=== PATIENT | male | born 1950 | race Caucasian/White ===

== ENCOUNTER 2017-02-12 01:46 | Emergency (ER) | payer MEDICARE, OTHER ==
--- NOTE | 2017-02-12 04:02 | EDM.PDOC ---
ED HPI Skin/Rash - General Chief Complaint: Skin Complaint Stated Complaint: POSS RASH ON ANKLES Time Seen by Provider: 02/12/17 03:39 Source: Reports: Patient, RN notes reviewed History Limitations: Reports: No limitations - History of Present Illness INITIAL COMMENTS - FREE TEXT/NARRATIVE: The patient states that he has had a rash on his bilateral ankles since this past summer, that it is sometimes pruritic, sometimes not. Tonight it is very pruritic, and he also has a pruritic area on the medial aspect of his right upper arm, without rash. He states that the itching is preventing him from sleeping. The patient believes that the pruritus is due to an adverse reaction to the blood pressure medicines that he has been prescribed. [facility] - Related Data Allergies Allergy/AdvReac Type Severity Reaction Status Date / Time bee venom protein (honey bee) Allergy Swelling Verified 02/12/17 02:00 Home Meds: Ambulatory Orders Medication Instructions Recorded Confirmed Aspirin [Low Dose Aspirin EC] 81 mg PO DAILY 03/08/14 02/12/17 Levothyroxine Sodium [Synthroid] 150 mcg PO DAILY 03/08/14 02/12/17 Cholecalciferol (Vitamin D3) 1,000 unit PO DAILY 02/12/17 02/12/17 [Vitamin D3] Docusate Sodium [Stool Softener] 100 mg PO ASDIRECTED 02/12/17 02/12/17 Fish Oil/Borage/Flax/Om3,6,9#1 1,600 mg PO ASDIRECTED 02/12/17 02/12/17 [[place] 3-6-9 Complex Softgel] Glucosamine [Glucosamine Sulfate] 1,000 mg PO DAILY 02/12/17 02/12/17 Losartan [Cozaar] 50 mg PO DAILY 02/12/17 02/12/17 Omeprazole 20 mg PO DAILY 02/12/17 02/12/17 Past Medical History Cardiovascular History: Reports: Hypertension Gastrointestinal History: Reports: GERD Genitourinary History: Reports: Renal calculus Musculoskeletal History: Reports: Arthritis Endocrine/Metabolic History: Reports: Hypothyroidism, Obesity/BMI 30+ - Past Surgical History HEENT Surgical History: Reports: Cataract surgery, Tonsillectomy GI Surgical History: Reports: Appendectomy Musculoskeletal Surgical History: Reports: Knee replacement (right) Social & Family History - Family History Family Medical History: Noncontributory - Tobacco Use Smoking Status *Q: Former Smoker Years of Tobacco use: 20 Packs/Tins Daily: 0.5 Used Tobacco, but Quit: Yes Month Tobacco Last Used: Quit 1984 Second Hand Smoke Exposure: No - Caffeine Use Caffeine Use: Reports: Coffee, Tea - Alcohol Use Alcohol Use History: Yes Alcohol Use Frequency: Socially - Recreational Drug Use Recreational Drug Use: No - Living Situation & Occupation Living situation: Reports: single, alone 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[employer]) ED ROS GENERAL - Review of Systems Review Of Systems: See Below Constitutional: Reports: no symptoms HEENT: Reports: No symptoms Respiratory: Reports: No Symptoms Cardiovascular: Reports: No symptoms Endocrine: Reports: no symptoms GI/Abdominal: Reports: No symptoms : Reports: no symptoms Musculoskeletal: Reports: no symptoms Skin: Reports: no symptoms Neurological: Reports: No Symptoms Psychiatric: Reports: No symptoms Hematologic/Lymphatic: Reports: no symptoms Immunologic: Reports: no symptoms ED EXAM, SKIN/RASH Exam: See Below Exam Limited By: No limitations General Appearance: alert, WD/WN, no apparent distress Extremities: other (There are several patches, measuring perhaps 3-4 cm in length, 2 cm wide, of thickened, hyperpigmented skin at the ankle level. The patient has 3+ pitting pretibial edema bilaterally, extending onto both feet. Neurovascular status of both lower extremities is intact. Mild eczema noted to the medial aspect of the upper right arm.) Course - Vital Signs Last Recorded V/S: Last Vital Signs Temp 36.3 C 02/12/17 01:56 Pulse 77 02/12/17 01:56 Resp 20 02/12/17 01:56 BP 193/103 H 02/12/17 01:56 Pulse Ox 94 L 02/12/17 01:56 - Re-Assessments/Exams Free Text/Narrative Re-Assessment/Exam: 02/12/17 03:57 I suspect that the lesions on the patient's ankles are early chronic venous stasis changes, and that they have nothing whatsoever to do with the blood pressure medicines that he has been taking. Ordinarily, I would recommend a combination of treatments including a diuretic, compression stockings, and elevation of the lower series, however, as the [facility], the patient states that it may be 3 weeks before he can get in to see his PCP. I am reluctant to prescribe a diuretic for 3 weeks, on monitored, as the patient could have significant electrolyte or renal consequences. Instead, the patient and I have agreed that he will contact the office of his PCP later today and see if he can get in to see her. I am going to document in my discharge instructions my thoughts. If the patient's PCP disagrees, I am suggesting referral to a product management intern for definitive diagnosis and treatment. Departure - Departure Time of Disposition: 03:59 Disposition: Home, Self-Care 01 Condition: good Clinical Impression: Chronic venous stasis dermatitis of both lower extremities Instructions: Venous Stasis or Chronic Venous Insufficiency, Rash, [id number] Referrals: Rneo Osullivan MD [Primary Care Provider] - Forms: ED Department Discharge Additional Instructions: You were seen in the emergency room tonight for worsening itchiness of chronic rashes on your ankles. Your rash appears to be dermatitis due to chronic venous stasis, that is, breakdown of your skin due to excessive pressure, due to edema. We DO NOT believe your rash has anything to do with your blood pressure medicines. We [facility]. Discuss the option of treatment with a diuretic, compression stockings, and elevation of your lower extremities. Alternatively, perhaps she will refer you to a product management intern. In the meantime, we recommend keeping your skin hydrated with a fragrance-free lotion. If any other problems, please do not hesitate to return to the ER.
== END 2017-02-12 04:10 | disposition home or self-care (01) ==
LOC: JD.ED 01:46
CPT/HCPCS: 99282; 99283

== ENCOUNTER 2017-02-14 21:51 | Emergency (ER) | payer OTHER, MEDICARE ==
[2017-02-14 22:08] VITALS: BP 185/94
--- NOTE | 2017-02-14 22:58 | EDM.PDOC ---
ED HPI Trauma - General Chief Complaint: Lower Extremity Injury/Pain Stated Complaint: INJURED LEFT ANKLE Time Seen by Provider: 02/14/17 22:02 Source: Reports: Patient History Limitations: Reports: No limitations - History of Present Illness INITIAL COMMENTS - FREE TEXT/NARRATIVE: The patient presents with left lateral ankle pain. This started after he walked out of the [facility] today. He is unsure if he twisted it or stepped wrong. The pain has been progressively getting worse. He has no history of gout. He was seen for a rash in his legs here 2 days ago and then today at the [facility]. They think he has venous stasis ulcers. Occurred When: this morning Occurred Where: other ([facility]) Method of Injury: unknown Severity: severe Pain/Injury Location: Reports: lower extremity, left (lateral ankle) Consciousness: Reports: no loss of consciousness Allergies/ADRs: Allergies bee venom protein (honey bee) Allergy (Verified 02/14/17 22:02) Swelling Home Medications: Ambulatory Orders Aspirin [Low Dose Aspirin EC] 81 mg PO DAILY 03/08/14 [Confirmed 02/12/17] Levothyroxine Sodium [Synthroid] 150 mcg PO DAILY 03/08/14 [Confirmed 02/12/17] Cholecalciferol (Vitamin D3) [Vitamin D3] 1,000 unit PO DAILY 02/12/17 [ Confirmed 02/12/17] Docusate Sodium [Stool Softener] 100 mg PO ASDIRECTED 02/12/17 [Confirmed ] Fish Oil/Borage/Flax/Om3,6,9#1 [[place] 3-6-9 Complex Softgel] 1,600 mg PO ASDIRECTED 02/12/17 [Confirmed 02/12/17] Glucosamine [Glucosamine Sulfate] 1,000 mg PO DAILY 02/12/17 [Confirmed 02/12/17 ] Losartan [Cozaar] 50 mg PO DAILY 02/12/17 [Confirmed 02/12/17] Omeprazole 20 mg PO DAILY 02/12/17 [Confirmed 02/12/17] Past Medical History HEENT History: Reports: Cataract Cardiovascular History: Reports: Hypertension Gastrointestinal History: Reports: GERD Genitourinary History: Reports: Renal calculus Musculoskeletal History: Reports: Arthritis Endocrine/Metabolic History: Reports: Hypothyroidism, Obesity/BMI 30+ - Past Surgical History HEENT Surgical History: Reports: Cataract surgery, Tonsillectomy GI Surgical History: Reports: Appendectomy Musculoskeletal Surgical History: Reports: Knee replacement Social & Family History - Family History Family Medical History: Noncontributory - Tobacco Use Smoking Status *Q: Former Smoker Years of Tobacco use: 20 Packs/Tins Daily: 0.5 Used Tobacco, but Quit: Yes Month Tobacco Last Used: Quit 1984 Second Hand Smoke Exposure: No - Caffeine Use Caffeine Use: Reports: Coffee, Tea - Alcohol Use Days Per Week of Alcohol Use: 0 - Recreational Drug Use Recreational Drug Use: No - Living Situation & Occupation Living situation: Reports: single, alone 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) Review of Systems - Review of Systems Review Of Systems: See Below Constitutional: Reports: no symptoms Eyes: Reports: no symptoms Ears: Reports: no symptoms Nose: Reports: no symptoms Mouth/Throat: Reports: no symptoms Respiratory: Reports: No Symptoms Cardiovascular: Reports: no symptoms GI/Abdominal: Reports: No symptoms Genitourinary: Reports: no symptoms Musculoskeletal: Reports: other (Left lateral ankle pain) Trauma Exam - Physical Exam Exam: See Below Exam Limited By: No limitations General Appearance: Reports: alert, no apparent distress Head: Reports: atraumatic, normocephalic Ears: Reports: normal external exam Nose: Reports: normal inspection Neck: Reports: non-tender Respiratory Exam: Reports: no respiratory distress Extremities: Reports: other (Moderate pain upon palpation to the left lateral ankle. Good sensation and pulses distally.) Course - Vital Signs Last Recorded V/S: Last Vital Signs Temp 99.4 F 02/14/17 22:02 Pulse 115 H 02/14/17 22:02 Resp 18 02/14/17 22:02 BP 185/94 H 02/14/17 22:02 Pulse Ox 97 02/14/17 22:02 - Orders/Labs/Meds Orders: Active Orders 24 hr Category Date Time Status Ankle Min 3V Lt [CR] Stat Exams 02/14/17 22:17 Taken - Re-Assessments/Exams Free Text/Narrative Re-Assessment/Exam: 02/14/17 22:55 His x-ray looks good. I will discharge him home with an shruti bandage and some percocets. Departure - Departure Time of Disposition: 23:00 Disposition: Home, Self-Care 01 Condition: good Clinical Impression: Left ankle sprain Qualifiers: Encounter type: initial encounter Involved ligament of ankle: unspecified ligament Qualified Code(s): S93.402A - Sprain of unspecified ligament of left ankle, initial encounter Referrals: Reno Osullivan MD [Primary Care Provider] - 1 Week (If not better) Forms: ED Department Discharge Additional Instructions: Ice your ankle for 15 minutes every other hour while awake for 2 days. Elevate your leg as much as you can for 2 days. Take the percocet for pain or an antiinflammatory such as motrin or aleve. [facility] you [facility] not get better in 1 week. - My Orders Last 24 Hours: My Active Orders 02/14/17 22:17 Ankle Min 3V Lt [CR] Stat - Assessment/Plan Last 24 Hours: My Active Orders 02/14/17 22:17 Ankle Min 3V Lt [CR] Stat
--- NOTE | 2017-02-15 14:28 | CR ---
Left ankle: Four views of the left ankle were obtained. Comparison: No previous study. Plantar spur is noted. Soft tissue swelling is identified. Ankle mortise is symmetric. No acute fracture or other bony abnormality is seen. Impression: 1. Soft tissue swelling. 2. Plantar spur. 3. No acute bony abnormality is identified. Diagnostic code #2
== END 2017-02-14 23:10 | disposition home or self-care (01) ==
LOC: JD.ED 21:51
DX: S93.402A Sprain of unspecified ligament of left ankle, initial encounter (principal); I10 Essential (primary) hypertension; K21.9 Gastro-esophageal reflux disease without esophagitis; E03.9 Hypothyroidism, unspecified; E66.9 Obesity, unspecified; Z90.49 Acquired absence of other specified parts of digestive tract; Z98.49 Cataract extraction status, unspecified eye; Z98.890 Other specified postprocedural states; Z96.659 Presence of unspecified artificial knee joint; Z87.891 Personal history of nicotine dependence; Z79.899 Other long term (current) drug therapy; Z79.82 Long term (current) use of aspirin; Z91.030 Bee allergy status; X58.XXXA Exposure to other specified factors, initial encounter; Z68.42 Body mass index [BMI] 45.0-49.9, adult
CPT/HCPCS: 73610-26-LT; 73610-LT; 99283

== ENCOUNTER 2020-02-29 16:14 | Emergency (ER) | payer OTHER, MEDICARE ==
[2020-02-29 16:30] VITALS: BP 164/90; PULSE 79
[2020-02-29] MEDS ORDERED: valACYclovir 1,000 MG Tab PO ONE (16:50)
--- NOTE | 2020-02-29 16:55 | EDM.PDOC ---
ED HPI GENERAL MEDICAL PROBLEM - General Chief Complaint: Upper Extremity Injury/Pain Stated Complaint: RT SHOULDER AND ARM PAIN Time Seen by Provider: 02/29/20 16:31 Source of Information: Reports: Patient History Limitations: Reports: No Limitations - History of Present Illness INITIAL COMMENTS - FREE TEXT/NARRATIVE: Patient is a 69-year-old male who presents to the emergency department with intermittent, throbbing pain to his right shoulder and arm. States that he has "a pimple "on the back and feels like there is something stuck in it. He describes the pain as sharp, stabbing, and burning. States he first noticed it approximately 1 week ago. Denies any fever, chills, nausea, or vomiting. Patient has no history of shingles and has not had a shingles vaccination. Right Shoulder Pain Score (Numeric/FACES): 6 - Related Data Allergies Allergy/AdvReac Type Severity Reaction Status Date / Time bee venom protein (honey bee) Allergy Swelling Verified 02/29/20 16:22 Home Meds: Home Meds Aspirin [Low Dose Aspirin EC] 81 mg PO DAILY 03/08/14 [History] Levothyroxine Sodium [Synthroid] 150 mcg PO DAILY 03/08/14 [History] Cholecalciferol (Vitamin D3) [Vitamin D3] 1,000 unit PO DAILY 02/12/17 [History] Docusate Sodium [Stool Softener] 100 mg PO ASDIRECTED 02/12/17 [History] Fish Oil/Borage/Flax/Om3,6,9 1 [[place] 3-6-9 Complex Softgel] 1,600 mg PO ASDIRECTED 02/12/17 [History] Glucosamine [Glucosamine Sulfate] 1,000 mg PO DAILY 02/12/17 [History] Losartan [Cozaar] 50 mg PO DAILY 02/12/17 [History] Omeprazole 20 mg PO DAILY 02/12/17 [History] valACYclovir [Valtrex] 1,000 mg PO TID 7 Days #20 tab 02/29/20 [Rx] Past Medical History HEENT History: Reports: Cataract Cardiovascular History: Reports: Hypertension Gastrointestinal History: Reports: GERD Genitourinary History: Reports: Renal Calculus Musculoskeletal History: Reports: Arthritis Endocrine/Metabolic History: Reports: Hypothyroidism, Obesity/BMI 30+ - Past Surgical History HEENT Surgical History: Reports: Cataract Surgery, Tonsillectomy GI Surgical History: Reports: Appendectomy Musculoskeletal Surgical History: Reports: Knee Replacement Social & Family History - Family History Family Medical History: Noncontributory - Tobacco Use Smoking Status *Q: Former Smoker Used Tobacco, but Quit: Yes Month/Year Tobacco Last Used: 11/1985 - Caffeine Use Caffeine Use: Reports: None - Recreational Drug Use Recreational Drug Use: No - Living Situation & Occupation Living situation: Reports: Single, Alone Occupation: Employed Review of Systems - Review of Systems Review Of Systems: Comprehensive ROS is negative, except as noted in HPI. ED EXAM, GENERAL - Physical Exam Exam: See Below Exam Limited By: No Limitations General Appearance: Alert, WD/WN, No Apparent Distress Respiratory/Chest: No Respiratory Distress, Lungs Clear, Normal Breath Sounds, No Accessory Muscle Use, Chest Non-Tender Cardiovascular: Normal Peripheral Pulses, Regular Rate, Rhythm, No Edema, No Gallop, No JVD, No Murmur, No Rub Neurological: Alert, Oriented, CN II-XII Intact, Normal Cognition, Normal Gait, Normal Reflexes, No Motor/Sensory Deficits Psychiatric: Normal Affect, Normal Mood Skin Exam: Other (Line of open, scabbed, erythematous lesions following the T1 dermatome on the patient's back, as well as chest. There are number of scattered lesions to the ventral surface of the right arm as well.) Course - Vital Signs Last Recorded V/S: Last Vital Signs Temp 99.9 F 02/29/20 16:24 Pulse 79 02/29/20 16:24 Resp 22 H 02/29/20 16:24 BP 164/90 H 02/29/20 16:24 Pulse Ox 93 L 02/29/20 16:24 - Re-Assessments/Exams Free Text/Narrative Re-Assessment/Exam: 02/29/20 16:54 Exam findings are consistent with a diagnosis of shingles. Patient has not had a shingles vaccination, however he does not have a history of shingles either. We will start the patient on valacyclovir 3 times daily for 7 days. Discharge instructions as documented. Departure - Departure Time of Disposition: 16:55 Disposition: Home, Self-Care 01 Condition: Fair Clinical Impression: Herpes zoster Qualifiers: Herpes zoster complications: without complications Qualified Code(s): B02.9 - Zoster without complications - Discharge Information *PRESCRIPTION DRUG MONITORING PROGRAM REVIEWED*: No *COPY OF PRESCRIPTION DRUG MONITORING REPORT IN PATIENT JACKIE: No Prescriptions: valACYclovir [Valtrex] 1,000 mg PO TID 7 Days #20 tab Instructions: Shingles, [id number] Referrals: Reno Osullivan MD [Primary Care Provider] - Additional Instructions: You were seen in the emergency department today for pain to your right shoulder. Your exam was consistent with a diagnosis of shingles. Treatment for this is antiviral medications. You have been started on valacyclovir. Your first dose was given in the emergency department. You will take it 3 times a day for 7 days. Prescription for this has been sent electronically to [facility]. [facility] and discuss receiving a [facility] vaccination. Return to the ER as needed. Sepsis Event Note - Evaluation Sepsis Screening Result: No Definite Risk - Focused Exam Vital Signs: Vital Signs Temp Pulse Resp BP Pulse Ox 02/29/20 16:24 99.9 F 79 22 H 164/90 H 93 L Date Exam was Performed: 02/29/20 Time Exam was Performed: 16:50
== END 2020-02-29 17:08 | disposition home or self-care (01) ==
LOC: JD.ED 16:14
DX: B02.9 Zoster without complications (principal); I10 Essential (primary) hypertension; K21.9 Gastro-esophageal reflux disease without esophagitis; M19.90 Unspecified osteoarthritis, unspecified site; E03.9 Hypothyroidism, unspecified; E66.9 Obesity, unspecified; Z68.42 Body mass index [BMI] 45.0-49.9, adult; Z87.891 Personal history of nicotine dependence; Z91.030 Bee allergy status; Z79.82 Long term (current) use of aspirin; Z79.899 Other long term (current) drug therapy
CPT/HCPCS: 99283; A9270

== ENCOUNTER 2020-05-20 19:42 | Emergency (ER) | payer MEDICARE, OTHER ==
[2020-05-20] MEDS ORDERED: Acetaminophen/HYDROcodone 325-5 MG Tab PO ONE (21:05)
--- NOTE | 2020-05-20 21:13 | EDM.PDOC ---
ED HPI GENERAL MEDICAL PROBLEM - General Chief Complaint: Lower Extremity Injury/Pain Stated Complaint: KNEE PAIN Time Seen by Provider: 05/20/20 20:42 Source of Information: Reports: Patient, Family (Daughter) History Limitations: Reports: No Limitations - History of Present Illness INITIAL COMMENTS - FREE TEXT/NARRATIVE: Mr. Hernandez is a very pleasant 69-year-old gentleman with a past medical history significant for osteoarthritis, who now presents to the ED stating that he has been experiencing relatively mild left knee pain for about 2 weeks, then developed sudden onset significant anteromedial left knee pain around 19:00 this evening, as he was getting out of a recliner. No direct injury to the knee. He mentions that he has had previous steroid injections to that knee, most recently about 4 months ago, per his Orthopedic Surgeon. He is aware that he needs a left knee replacement (he already underwent a right total knee arthroplasty), and states that he has an appointment at the [facility] on July 13 in that regard. Here in the ED, the patient is found to be hemodynamically stable, afebrile, saturating 91% on room air. Other than his left knee pain, the patient denies recent fever, chills, sore throat, ear pain, nasal or sinus congestion, cough, dyspnea, chest pain, palpitations, nausea, vomiting, constipation, diarrhea, abdominal pain, urinary symptoms, recent weight gain or weight loss, recent bloody bowel movements or black bowel movements, headaches, or rashes. The patient's PCP is Dr. Lisa Dodson, at the [facility] clinic. His Orthopedic Surgeon is Dr. Robert Veliz. Right Knee Pain Score (Numeric/FACES): 8 - Related Data Allergies Allergy/AdvReac Type Severity Reaction Status Date / Time bee venom protein (honey bee) Allergy Swelling Verified 05/20/20 21:20 Home Meds: Home Meds Aspirin [Low Dose Aspirin EC] 81 mg PO DAILY 03/08/14 [History] Levothyroxine Sodium [Synthroid] 175 mcg PO DAILY 03/08/14 [History] Cholecalciferol (Vitamin D3) [Vitamin D3] 1,000 unit PO DAILY 02/12/17 [History] Docusate Sodium [Stool Softener] 250 mg PO ASDIRECTED 02/12/17 [History] Glucosamine [Glucosamine Sulfate] 1,500 mg PO DAILY 02/12/17 [History] Omeprazole 20 mg PO DAILY 02/12/17 [History] Acetaminophen/HYDROcodone [Lawrence 325-5 MG] 1 - 2 tab PO Q6H PRN #14 tablet 05/20/20 [Rx] Hydrochlorothiazide/Lisinopril [Lisinopril/HCTZ 20-12.5 MG] 25 mg PO DAILY 05/20/20 [History] Loratadine 10 mg PO ASDIRECTED 05/20/20 [History] Naproxen Sodium [Aleve] 220 mg PO ASDIRECTED 05/20/20 [History] Triamcinolone Acetonide [Triamcinolone Acetonide 0.5%] 1 applic TOP ASDIRECTED 05/20/20 [History] hydrALAZINE [Apresoline] 25 mg PO ASDIRECTED 05/20/20 [History] lisinopriL [Lisinopril] 40 mg PO DAILY 05/20/20 [History] Past Medical History Cardiovascular History: Reports: Hypertension Gastrointestinal History: Reports: GERD Genitourinary History: Reports: Renal Calculus Musculoskeletal History: Reports: Osteoarthritis Endocrine/Metabolic History: Reports: Hypothyroidism, Obesity/BMI 30+ - Past Surgical History HEENT Surgical History: Reports: Cataract Surgery (bilateral), Tonsillectomy GI Surgical History: Reports: Appendectomy Musculoskeletal Surgical History: Reports: Knee Replacement (right) Social & Family History - Family History Family Medical History: Noncontributory - Tobacco Use Smoking Status *Q: Former Smoker Years of Tobacco use: 20 Packs/Tins Daily: 0.5 Month/Year Tobacco Last Used: Quit 1984 - Caffeine Use Caffeine Use: Reports: Coffee, Soda, Tea - Alcohol Use Alcohol Use History: Yes Alcohol Use Frequency: Socially - Recreational Drug Use Recreational Drug Use: No - Living Situation & Occupation Living situation: Reports: Single, Alone Occupation: Retired Review of Systems - Review of Systems Review Of Systems: Comprehensive ROS is negative, except as noted in HPI. ED EXAM, GENERAL - Physical Exam Exam: See Below Exam Limited By: No Limitations General Appearance: Alert, WD/WN, No Apparent Distress Extremities: Other (No visible abnormality to the left knee, such as swelling, erythema, ecchymosis, or abrasion. The patient has tenderness to palpation over the anteromedial knee, but no significant tenderness elsewhere. He complains of pain with PROM. Trace left pretibial edema. Neurovascular status of the left lower extremity is intact.) Course - Vital Signs Last Recorded V/S: Last Vital Signs Temp 36.7 C 05/20/20 19:58 Pulse 78 05/20/20 21:40 Resp 18 05/20/20 21:40 BP 141/77 H 05/20/20 21:40 Pulse Ox 95 05/20/20 21:40 - Orders/Labs/Meds Meds: Medications Discontinued Medications Generic Name Dose Route Start Last Admin Trade Name Pebbles PRN Reason Stop Dose Admin Hydrocodone Bitart/Acetaminophen 2 tab 05/20/20 21:05 05/20/20 21:20 Lawrence 325-5 Mg PO 05/20/20 21:06 2 tab ONETIME ONE Administration - Re-Assessments/Exams Free Text/Narrative Re-Assessment/Exam: 05/20/20 21:05 As above, the patient developed sudden onset anteromedial pain to his left knee when he got up from a recliner around 19:00, although he admits that he has had pain to that knee for the past couple of weeks. His pain may be due to his underlying arthritis, but he also has tenderness to palpation in that area, and he believes that he has an effusion, therefore I ordered x-rays of the joint to rule out acute pathology. In the meantime, the patient will be treated with 2 tablets of Lawrence. 05/20/20 21:25 8-view radiographs of the left knee appear to demonstrate advanced degenerative joint disease, but no acute abnormalities, such as a fracture or dislocation. The degeneration appears to be particularly advanced on the medial aspect of the joint. Formal read per the Radiologist pending. 05/20/20 21:30 X-ray results discussed with the patient and his daughter. As above, the patient's pain appears to be due to a knee strain, superimposed on advanced arthritis. I recommended a knee immobilizer, and the patient tells me that he already has 2 at home. I will prescribe some Lawrence, and have him continue to take [id number]-[id number] Aleve. He can then follow-up with Dr. Veliz. Departure - Departure Time of Disposition: 21:31 Disposition: Home, Self-Care 01 Condition: Good Clinical Impression: Strain of left knee - Discharge Information *PRESCRIPTION DRUG MONITORING PROGRAM REVIEWED*: Not Applicable *COPY OF PRESCRIPTION DRUG MONITORING REPORT IN PATIENT JACKIE: Not Applicable Prescriptions: Acetaminophen/HYDROcodone [Lawrence 325-5 MG] 1 - 2 tab PO Q6H PRN #14 tablet PRN Reason: Pain (Severe 7-10) Instructions: Muscle Strain Referrals: Robert Veliz DO [Physician] - Lisa Dodson MD [Physician] - Forms: ED Department Discharge Additional Instructions: You were seen in the emergency room after developing sudden onset pain to your left knee when getting up this evening. Work-up in the ER included x-rays of your left knee, which showed advanced arthritis, but no fractures or dislocations. Based on your history, physical exam, and ER x-rays, you have likely sprained your left knee. Recommend that you begin using one of your knee immobilizers. Apply it over your clothes in the morning, and remove it at bedtime. We recommend that you continue to take ekwz-[id number]-[id number] Aleve, up to 2 tablets every 12 hours, with food, as needed for discomfort. You have been started on the opioid pain reliever Lawrence, and a prescription for Lawrence has been provided to you. You may take 1 to 2 tablets of Lawrence up to every 6 hours, as needed for pain not relieved by Aleve. If you take Lawrence, do not drive for 12 hours after taking. Lawrence may cause constipation, so consider taking a stool softener. Follow-up with your Orthopedic Surgeon, Dr. Robert Veliz, at the next available appointment. If any other problems, please do not hesitate to return to the ER. Sepsis Event Note (ED) - Evaluation Sepsis Screening Result: No Definite Risk
[2020-05-20 21:50] VITALS: BP 141/77; PULSE 78
--- NOTE | 2020-05-21 19:38 | CR ---
Left knee: 4 views left knee were obtained. Comparison: No previous study. Severe medial joint space narrowing is noted. Lateral joint space is preserved. Osteophytes are noted off the medial joint. Osteophytes are noted off the patellofemoral joint. No joint effusion is seen. No acute abnormality is definitely appreciated. Impression: 1. Medial joint space narrowing with medial osteophytes. Patellar osteophytes are also noted. 2. Nothing acute is appreciated. Diagnostic code #2 This report was dictated in MDT
== END 2020-05-20 21:40 | disposition home or self-care (01) ==
LOC: JD.ED 19:42
DX: S86.912A Strain of unspecified muscle(s) and tendon(s) at lower leg level, left leg, initial encounter (principal); I10 Essential (primary) hypertension; K21.9 Gastro-esophageal reflux disease without esophagitis; E03.9 Hypothyroidism, unspecified; M19.90 Unspecified osteoarthritis, unspecified site; E66.9 Obesity, unspecified; Z68.42 Body mass index [BMI] 45.0-49.9, adult; Z91.030 Bee allergy status; Z87.891 Personal history of nicotine dependence; Z79.82 Long term (current) use of aspirin; Z79.899 Other long term (current) drug therapy; X58.XXXA Exposure to other specified factors, initial encounter
CPT/HCPCS: 73564; 99283; A9270

== ENCOUNTER 2020-11-07 05:20 | Emergency (ER) | payer MEDICARE, OTHER ==
[2020-11-07 05:48] VITALS: BP 198/72; PULSE 80
[2020-11-07] MEDS ORDERED: predniSONE 20 MG Tab PO STA (05:58)
--- NOTE | 2020-11-07 06:05 | EDM.PDOC ---
ED HPI GENERAL MEDICAL PROBLEM - General Chief Complaint: Lower Extremity Injury/Pain Stated Complaint: pain in right foot Time Seen by Provider: 11/07/20 05:31 Source of Information: Reports: Patient History Limitations: Reports: No Limitations - History of Present Illness INITIAL COMMENTS - FREE TEXT/NARRATIVE: Mr. Dykes is a very pleasant 69-year-old gentleman who now presents the ED with pain to his distal right foot that developed on or about this past 11/05/2020. The pain is made worse with any movement of his right great toe, and is preventing him from walking. No injury to the foot. No prior similar symptoms. No recent fever. The patient states that he has not taken any the counter or home remedies to try to treat his symptoms, although he ordinarily takes ibuprofen. Here in the ED, the patient is found to be hemodynamically stable, afebrile, saturating 98% on room air. Other than his right foot pain, the patient denies having a recent fever, chills, sore throat, ear pain, nasal or sinus congestion, cough, dyspnea, chest pain, palpitations, nausea, vomiting, constipation, diarrhea, abdominal pain, urinary symptoms, recent weight gain or weight loss, recent bloody bowel movements or black bowel movements, recent joint aches, headaches, or rashes. The patient's PCP is Dr. Ene Salas at the [facility]. His Orthopedic Surgeon is Dr. Robert Veliz. He has already received an influenza vaccine this season. Right Feet Pain Score (Numeric/FACES): 8 - Related Data Allergies Allergy/AdvReac Type Severity Reaction Status Date / Time bee venom protein (honey bee) Allergy Swelling Verified 11/07/20 05:39 Home Meds: Home Meds Aspirin [Low Dose Aspirin EC] 81 mg PO DAILY 03/08/14 [History] Levothyroxine Sodium [Synthroid] 175 mcg PO DAILY 03/08/14 [History] Cholecalciferol (Vitamin D3) [Vitamin D3] 1,000 unit PO DAILY 02/12/17 [History] Docusate Sodium [Stool Softener] 250 mg PO ASDIRECTED 02/12/17 [History] Glucosamine [Glucosamine Sulfate] 1,500 mg PO DAILY 02/12/17 [History] Omeprazole 20 mg PO DAILY 02/12/17 [History] Hydrochlorothiazide/Lisinopril [Lisinopril/HCTZ 20-12.5 MG] 25 mg PO DAILY 05/20/20 [History] Loratadine 10 mg PO ASDIRECTED 05/20/20 [History] Naproxen Sodium [Aleve] 220 mg PO ASDIRECTED 05/20/20 [History] Triamcinolone Acetonide [Triamcinolone Acetonide 0.5%] 1 applic TOP ASDIRECTED 05/20/20 [History] hydrALAZINE [Apresoline] 25 mg PO ASDIRECTED 05/20/20 [History] lisinopriL [Lisinopril] 40 mg PO DAILY 05/20/20 [History] predniSONE [Prednisone] 2 tab PO DAILY 6 Days #12 tablet 11/07/20 [Rx] Past Medical History Cardiovascular History: Reports: Hypertension Gastrointestinal History: Reports: GERD Genitourinary History: Reports: Renal Calculus Musculoskeletal History: Reports: Osteoarthritis Endocrine/Metabolic History: Reports: Hypothyroidism, Obesity/BMI 30+ - Past Surgical History HEENT Surgical History: Reports: Cataract Surgery (bilateral), Tonsillectomy GI Surgical History: Reports: Appendectomy Musculoskeletal Surgical History: Reports: Knee Replacement (right) Social & Family History - Tobacco Use Tobacco Use Status *Q: Former Tobacco User Years of Tobacco use: 20 Packs/Tins Daily: 0.5 Month/Year Tobacco Last Used: Quit 1984 - Caffeine Use Caffeine Use: Reports: Coffee, Soda, Tea - Alcohol Use Alcohol Use History: Yes Alcohol Use Frequency: Socially - Recreational Drug Use Recreational Drug Use: No - Living Situation & Occupation Living situation: Reports: Single, Alone Occupation: Retired Review of Systems - Review of Systems Review Of Systems: Comprehensive ROS is negative, except as noted in HPI. ED EXAM, GENERAL - Physical Exam Exam: See Below Exam Limited By: No Limitations General Appearance: Alert, WD/WN, No Apparent Distress Extremities: Other (Mild erythema and swelling about the right first MTP joint. The area of erythema and swelling is moderately tender to palpation. There is exquisite pain to even minimal PROM of the right first MTP joint. Neurovascular status of the right lower extremity is intact.) Course - Vital Signs Last Recorded V/S: Last Vital Signs Temp 36.8 C 11/07/20 05:48 Pulse 80 11/07/20 05:48 Resp 16 11/07/20 05:48 BP 198/72 H 11/07/20 05:48 Pulse Ox 98 11/07/20 05:48 - Orders/Labs/Meds Meds: Medications Discontinued Medications Generic Name Dose Route Start Last Admin Trade Name Pebbles PRN Reason Stop Dose Admin Prednisone 40 mg 11/07/20 05:58 11/07/20 06:05 Prednisone PO 11/07/20 05:59 40 mg ONETIME STA Administration - Re-Assessments/Exams Free Text/Narrative Re-Assessment/Exam: 11/07/20 05:58 The patient appears to have podagra. While he says that he has no renal insufficiency, I checked prior labs, finding his BUN/Cr be 25/1.5 with an estimated GFR of 47 on 03/28/2016. We do not have any blood work since then. Renal insufficiency would disqualify him for treatment with an NSAID. He does not have diabetes, evidence of an infection, recent surgery, or any other apparent contraindications to steroids, therefore I will treat him with prednisone 40 mg/day x days, starting today. He can take [id number] acetaminophen for discomfort, but I advised him to avoid NSAIDs. I would like him to follow-up with his orthopedic surgeon, Dr. Veliz, as early as tomorrow, however, he tells me that he needs to be in [place] on 11/09/2020 - his brother is undergoing surgery - so he is not sure that he will be able to see Dr. Veliz that soon. Departure - Departure Time of Disposition: 06:01 Disposition: Home, Self-Care 01 Condition: Good Clinical Impression: Podagra - Discharge Information *PRESCRIPTION DRUG MONITORING PROGRAM REVIEWED*: Not Applicable *COPY OF PRESCRIPTION DRUG MONITORING REPORT IN PATIENT JACKIE: Not Applicable Prescriptions: predniSONE [Prednisone] 2 tab PO DAILY 6 Days #12 tablet Instructions: Low-Purine Eating Plan Referrals: Robert Veliz DO [Physician] - Ene Salas DO [Ordering Only Provider] - Forms: ED Department Discharge Additional Instructions: You were seen in the emergency room for 2 days of pain, swelling, and redness to your right big toe joint. Based on your history and physical examination, you are most likely suffering from podagra = acute gouty flare. You have been started on the steroid prednisone, and a prescription for prednisone has been sent to the pharmacy in [place]. Take 40 mg of prednisone every day, starting tomorrow, 11/08/2020, as prescribed. Finish the entire prescription unless told otherwise by your doctor. You may take [id number] acetaminophen (Tylenol) as needed for discomfort, but you need to avoid taking NSAIDs such as ibuprofen (Advil, Motrin) or naproxen (Aleve). We recommend that you follow-up with your Orthopedic Surgeon, Dr. Robert Veliz, at the next available appointment. If any other problems, please do not hesitate to return to the ER. Sepsis Event Note (ED) - Evaluation Sepsis Screening Result: No Definite Risk - Focused Exam Vital Signs: Vital Signs Temp Pulse Resp BP Pulse Ox 11/07/20 05:48 36.8 C 80 16 198/72 H 98 11/07/20 05:36 36.8 C 198 H 16 98
== END 2020-11-07 06:24 | disposition home or self-care (01) ==
LOC: JD.ED 05:20
DX: M10.9 Gout, unspecified (principal); I10 Essential (primary) hypertension; K21.9 Gastro-esophageal reflux disease without esophagitis; M19.90 Unspecified osteoarthritis, unspecified site; E03.9 Hypothyroidism, unspecified; E66.9 Obesity, unspecified; Z68.41 Body mass index [BMI] 40.0-44.9, adult; Z87.891 Personal history of nicotine dependence; Z91.030 Bee allergy status; Z79.82 Long term (current) use of aspirin; Z79.899 Other long term (current) drug therapy
CPT/HCPCS: 99283; J7512

== ENCOUNTER 2023-11-24 08:27 | Emergency (ER) | payer OTHER ==
[2023-11-24 09:24] LABS: BASOPHILS ABSOLUTE AUTO 0.1 K/mm3 (0.0-0.2); BASOPHILS PERCENT AUTO 0.4 % (0.0-1.0); EOSINOPHILS ABSOLUTE AUTO 0.1 K/mm3 (0.0-0.4); EOSINOPHILS PERCENT AUTO 0.8 % (0.0-6.0); HEMATOCRIT 42.3 % (42.0-52.0); HEMOGLOBIN 14.2 gm/dl (14.0-18.0); IMMATURE GRAN ABSOLUTE AUTO 0.05 K/mm3 (0.00-0.05); IMMATURE GRAN PERCENT AUTO 0.4 % (0.0-0.4); LYMPHOCYTES ABSOLUTE AUTO 1.7 K/mm3 (1.0-4.8); LYMPHOCYTES PERCENT AUTO 15.4 % (24.0-44.0); MEAN CORPUSCULAR HEMOGLOBIN 30.4 pg (28.0-32.0); MEAN CORPUSCULAR HGB CONC 33.6 g/dl (32.0-36.0); MEAN CORPUSCULAR VOLUME 90.6 fl (83.0-99.0); MEAN PLATELET VOLUME 9.5 fl (9.4-12.4); MONOCYTES ABSOLUTE AUTO 0.8 K/mm3 (0.0-0.8); NEUTROPHILS ABSOLUTE AUTO 8.6 K/mm3 (1.8-7.7); PLATELET COUNT,PLT 236 K/mm3 (150-400); RED BLOOD CELL COUNT 4.67 M/mm3 (4.52-5.90); WHITE BLOOD CELL COUNT,WBC 11.26 K/mm3 (3.9-11.3)
[2023-11-24 09:41] LABS: APPEARANCE,URINE CLEAR (Clear); BILIRUBIN,URINE NEGATIVE (Negative); COLOR,URINE YELLOW (Yellow); GLUCOSE,URINE NEGATIVE (Negative); KETONES,URINE NEGATIVE (Negative); LEUKOCYTE ESTERASE,URINE 2+ (Negative); NITRITE,URINE NEGATIVE (Negative); OCCULT BLOOD,URINE 2+ (Negative); PROTEIN,URINE 1+ (Negative); UROBILINOGEN,URINE 0.2 (0.2-1.0)
[2023-11-24 09:43] LABS: A/G RATIO 0.8 (1-2); ALBUMIN 3.4 g/dl (3.4-5.0); ANION GAP 12.8 (5-15); BILIRUBIN TOTAL 0.8 mg/dL (0.2-1.0); BUN/CREATININE RATIO 18.1 (14-18); CALCIUM 9.3 mg/dL (8.5-10.1); CREATININE 1.6 mg/dL (0.7-1.3); EST CRCL DRUG DOSING (CG) 43.78 mL/min; MAGNESIUM 1.7 mg/dL (1.8-2.4); POTASSIUM,K 3.8 mEq/L (3.5-5.1); PROTEIN TOTAL,TP 7.5 g/dl (6.4-8.2)
[2023-11-24 09:55] LABS: BACTERIA,URINE MODERATE /hpf (FEW); MUCUS,URINE FEW /hpf (FEW); RBC,URINE >100 /hpf (0-5); SQUAMOUS EPITHELIAL CELLS,UR 0-5 /hpf (0-5); WBC CLUMPS,URINE MODERATE /hpf (NOT SEEN); WBC,URINE 75-100 /hpf (0-5)
[2023-11-24] MEDS ORDERED: cefTRIAXone 1 GM in Sodium Chloride 0.9% 100 ML IV ONE (10:05)
[2023-11-24 11:25] VITALS: BP 142/86; PULSE 82
== END 2023-11-24 11:07 | disposition home or self-care (01) ==
LOC: JD.ED 08:27
DX: N30.00 Acute cystitis without hematuria (principal); K21.9 Gastro-esophageal reflux disease without esophagitis; I10 Essential (primary) hypertension; M19.90 Unspecified osteoarthritis, unspecified site; E66.9 Obesity, unspecified; Z68.44 Body mass index [BMI] 60.0-69.9, adult; Z91.030 Bee allergy status
CPT/HCPCS: 36415; 74018; 80053; 81001; 83735; 85025; 96365; 99284; J0696; J3490

== ENCOUNTER 2024-05-21 05:20 | Emergency (ER) | payer MEDICARE, OTHER ==
[2024-05-21] MEDS: Ondansetron 4 MG/2 ML SDV IVPUSH ONE (05:51)
[2024-05-21] MEDS: HYDROmorphone 0.5 MG/0.5 ML Syringe IVPUSH ONE ×2 (05:53→06:46)
[2024-05-21 07:05] LABS: BASOPHILS ABSOLUTE AUTO 0.1 K/mm3 (0.0-0.2); BASOPHILS PERCENT AUTO 0.4 % (0.0-1.0); EOSINOPHILS ABSOLUTE AUTO 0.1 K/mm3 (0.0-0.4); EOSINOPHILS PERCENT AUTO 0.5 % (0.0-6.0); HEMATOCRIT 40.9 % (42.0-52.0); HEMOGLOBIN 13.5 gm/dl (14.0-18.0); IMMATURE GRAN ABSOLUTE AUTO 0.11 K/mm3 (0.00-0.05); IMMATURE GRAN PERCENT AUTO 0.9 % (0.0-0.4); LYMPHOCYTES ABSOLUTE AUTO 2.1 K/mm3 (1.0-4.8); LYMPHOCYTES PERCENT AUTO 16.6 % (24.0-44.0); MEAN CORPUSCULAR HEMOGLOBIN 30.1 pg (28.0-32.0); MEAN CORPUSCULAR VOLUME 91.3 fl (83.0-99.0); MEAN PLATELET VOLUME 9.7 fl (9.4-12.4); MONOCYTES ABSOLUTE AUTO 1.2 K/mm3 (0.0-0.8); MONOCYTES PERCENT AUTO 9.6 % (0.0-8.0); NEUTROPHILS ABSOLUTE AUTO 9.1 K/mm3 (1.8-7.7); PLATELET COUNT,PLT 276 K/mm3 (150-400); RED BLOOD CELL COUNT 4.48 M/mm3 (4.52-5.90); WHITE BLOOD CELL COUNT,WBC 12.62 K/mm3 (3.9-11.3)
[2024-05-21 07:15] LABS: A/G RATIO 0.7 (1-2); ALBUMIN 3.2 g/dl (3.4-5.0); ANION GAP 16.5 (5-15); BILIRUBIN TOTAL 0.7 mg/dL (0.2-1.0); BUN/CREATININE RATIO 15.7 (14-18); CALCIUM 9.2 mg/dL (8.5-10.1); CREATININE 2.1 mg/dL (0.7-1.3); EST CRCL DRUG DOSING (CG) 33.36 mL/min; POTASSIUM,K 3.5 mEq/L (3.5-5.1); PROTEIN TOTAL,TP 7.6 g/dl (6.4-8.2)
[2024-05-21] MEDS: Sodium Chloride 0.9% 10 ML Syringe FLUSH PRN (07:34)
[2024-05-21] MEDS: HYDROmorphone 1 MG/ML Syringe IVPUSH ONE (07:34)
[2024-05-21] MEDS: Sodium Chloride 0.9% 1,000 ML IV SCH (07:54)
[2024-05-21 09:23] LABS: APPEARANCE,URINE SLT CLOUDY (Clear); BILIRUBIN,URINE NEGATIVE (Negative); COLOR,URINE YELLOW (Yellow); GLUCOSE,URINE 1+ (Negative); KETONES,URINE NEGATIVE (Negative); LEUKOCYTE ESTERASE,URINE TRACE (Negative); NITRITE,URINE NEGATIVE (Negative); OCCULT BLOOD,URINE 3+ (Negative); PROTEIN,URINE 1+ (Negative); UROBILINOGEN,URINE 0.2 (0.2-1.0)
[2024-05-21 09:40] LABS: BACTERIA,URINE RARE /hpf (FEW); MUCUS,URINE FEW /hpf (FEW); RBC,URINE >100 /hpf (0-5); SQUAMOUS EPITHELIAL CELLS,UR NOT SEEN /hpf (0-5)
[2024-05-21] MEDS: cefTRIAXone 2 GM in Sodium Chloride 0.9% 100 ML IV ONE (10:34)
[2024-05-21 11:32] VITALS: BP 103/79; PULSE 80
== END 2024-05-21 11:25 | disposition home or self-care (01) ==
LOC: JD.ED 05:20
DX: N13.2 Hydronephrosis with renal and ureteral calculous obstruction (principal); I10 Essential (primary) hypertension; K21.9 Gastro-esophageal reflux disease without esophagitis; E03.9 Hypothyroidism, unspecified; E66.9 Obesity, unspecified; Z90.49 Acquired absence of other specified parts of digestive tract; Z79.899 Other long term (current) drug therapy; Z79.890 Hormone replacement therapy; Z79.82 Long term (current) use of aspirin; Z91.030 Bee allergy status; Z68.41 Body mass index [BMI] 40.0-44.9, adult
CPT/HCPCS: 36415; 74176; 80053; 81001; 83605; 85025; 87040; 87086; 96361; 96365; 96375; 96376; 99284; C1758; J0696; J1170; J2405; J3490; J7030

== ENCOUNTER 2024-05-24 19:40 | Emergency (ER) | payer MEDICARE, OTHER ==
[2024-05-24 19:55] VITALS: BP 155/68; PULSE 81
[2024-05-24 20:40] LABS: BASOPHILS PERCENT AUTO 0.3 % (0.0-1.0); EOSINOPHILS PERCENT AUTO 0.1 % (0.0-6.0); HEMOGLOBIN 10.4 gm/dl (14.0-18.0); IMMATURE GRAN ABSOLUTE AUTO 0.16 K/mm3 (0.00-0.05); LYMPHOCYTES PERCENT AUTO 6.4 % (24.0-44.0); MEAN CORPUSCULAR HEMOGLOBIN 30.1 pg (28.0-32.0); MEAN CORPUSCULAR HGB CONC 33.5 g/dl (32.0-36.0); MEAN CORPUSCULAR VOLUME 89.6 fl (83.0-99.0); MEAN PLATELET VOLUME 9.2 fl (9.4-12.4); MONOCYTES ABSOLUTE AUTO 1.2 K/mm3 (0.0-0.8); MONOCYTES PERCENT AUTO 7.6 % (0.0-8.0); NEUTROPHILS ABSOLUTE AUTO 13.2 K/mm3 (1.8-7.7); NEUTROPHILS PERCENT AUTO 84.6 % (41.0-71.0); PLATELET COUNT,PLT 315 K/mm3 (150-400); RED BLOOD CELL COUNT 3.46 M/mm3 (4.52-5.90); WHITE BLOOD CELL COUNT,WBC 15.55 K/mm3 (3.9-11.3)
[2024-05-24 20:41] LABS: APPEARANCE,URINE CLEAR (Clear); BILIRUBIN,URINE NEGATIVE (Negative); COLOR,URINE YELLOW (Yellow); GLUCOSE,URINE 2+ (Negative); KETONES,URINE NEGATIVE (Negative); LEUKOCYTE ESTERASE,URINE TRACE (Negative); NITRITE,URINE NEGATIVE (Negative); OCCULT BLOOD,URINE 1+ (Negative); PROTEIN,URINE 1+ (Negative); UROBILINOGEN,URINE 0.2 (0.2-1.0)
[2024-05-24] MEDS: Acetaminophen 325 MG Tab PO ONE (21:04)
[2024-05-24 21:05] LABS: BACTERIA,URINE FEW /hpf (FEW); SQUAMOUS EPITHELIAL CELLS,UR 0-5 /hpf (0-5); WBC,URINE 40-50 /hpf (0-5)
[2024-05-24] MEDS: cefTRIAXone 1 GM in Sodium Chloride 0.9% 100 ML IV ONE (21:05)
[2024-05-24] MEDS: Sodium Chloride 0.9% 1,000 ML IV ONE (21:05)
[2024-05-24 21:06] LABS: HYALINE CASTS,URINE 0-5 /lpf (0-5); LACTIC ACID 1.6 mmol/L (0.4-2.0); MUCUS,URINE FEW /hpf (FEW)
[2024-05-24 21:12] LABS: A/G RATIO 0.6 (1-2); ALBUMIN 2.7 g/dl (3.4-5.0); ANION GAP 16.1 (5-15); BILIRUBIN TOTAL 0.9 mg/dL (0.2-1.0); BUN/CREATININE RATIO 15.4 (14-18); CALCIUM 9.1 mg/dL (8.5-10.1); CREATININE 2.4 mg/dL (0.7-1.3); EST CRCL DRUG DOSING (CG) 29.19 mL/min; POTASSIUM,K 3.1 mEq/L (3.5-5.1); PROTEIN TOTAL,TP 7.5 g/dl (6.4-8.2)
== END 2024-05-25 00:19 ==
LOC: JD.ED 19:40
DX: N39.0 Urinary tract infection, site not specified (principal); I10 Essential (primary) hypertension; K21.9 Gastro-esophageal reflux disease without esophagitis; E03.9 Hypothyroidism, unspecified; Z90.49 Acquired absence of other specified parts of digestive tract; Z79.899 Other long term (current) drug therapy; Z79.82 Long term (current) use of aspirin; Z91.030 Bee allergy status
CPT/HCPCS: 36415; 80053; 81001; 83605; 85025; 87040; 87086; 96365; 99285; A9270; J0696; J3490; J7030